=== PATIENT | male | born 1980 | race Caucasian/White ===

== ENCOUNTER 2023-10-18 20:38 | Emergency (ER) | payer MEDICAID, SELFPAY ==
[2023-10-18 20:40] VITALS: BP 99/66; PULSE 108; RESP 19; TEMP 35.6; O2SAT 94; BMI 29.3
[2023-10-18 20:44] VITALS: BP 113/64
--- NOTE | 2023-10-18 20:46 | EX.ED.SAOD ---
HPI History of Present Illness Chief Complaint: Overdose Informant: patient and EMS Narrative Narrative: 43-year-old male who apparently lost consciousness and EMS was called, police gave him a dose of intranasal Narcan, followed by EMS who gave him 12 more doses/vials of intranasal Narcan before he woke up. At this time the patient states he feels very shaky his chest is sore, and he denies doing any drugs. He does state that he recalls telling bystanders that there is Narcan in his bedroom, just in case but not for him since he does not use drugs. PFSH PFS Medical History unable to obtain Allergy/AdvReac Type Severity Reaction Status Date / Time No Known Allergies Allergy Verified 10/18/23 20:48 Social History Smoking Status: Unknown if ever smoked ROS ROS ED Constitutional Constitutional ED: Denies chills or fever(s) Eyes Eyes: Denies change in vision or diplopia Cardiovascular Cardiovascular: Reports chest pain; Denies palpitations Respiratory/Chest Respiratory/Chest: Denies cough or dyspnea Gastrointestinal Gastrointestinal: Denies abdominal pain, diarrhea, nausea or vomiting Genitourinary Genitourinary ED: Denies dysuria or hematuria Musculoskeletal Musculoskeletal: Denies back pain or neck pain Integumentary Denies abscess or rash Neurologic Neurologic: Reports as per HPI, memory loss and syncope; Denies headache(s), paresthesias or weakness Psychiatric Psychiatric: Reports anxiety; Denies suicidal thoughts EXAM Physical Exam Const Vital Signs: 10/18/23 20:40 10/18/23 21:39 10/18/23 22:00 Temperature 96.1 F L Temperature Source Temporal Pulse Rate 108 H 86 89 Respiratory Rate 19 H 23 H 25 H Blood Pressure 99/66 109/64 Blood Pressure Mean 77 79 Pulse Ox 94 91 93 Oxygen Delivery Method Room Air Room Air Room Air 10/18/23 20:44 Temperature Temperature Source Pulse Rate Respiratory Rate Blood Pressure 113/64 Blood Pressure Mean 80 Pulse Ox Oxygen Delivery Method Positive well nourished and well developed General Appearance ED: well developed and NAD HEENT Reports moist mucous membranes normocephalic and atraumatic Eyes PERRL and EOMs intact bilaterally Eyes Narrative: 3-4 mm bilaterally Neck full ROM and supple Resp normal respiratory effort and clear to auscultation bilaterally Cardio regular rate, regular rhythm and no murmurs GI non-tender and non-distended Auscultation: normoactive bowel sounds Palpation: soft Back/Spine no CVA tenderness General Back: other FROM Extremity normal to inspection Extremity Narrative: Diffuse muscle spasms but able to follow commands, no seizure activity General Extremety ED: Negative for edema, pulses abnormal or tenderness General Extremity: Negative for edema or pulses abnormal Neuro oriented x3, CN's II-XII intact bilaterally and no sensory deficits noted Neuro Narrative: Tremulousness throughout Sensorium / Orientation: awake and alert Motor Exam: strength 5/5 throughout Psych Mood & Affect: anxious Skin no rashes or lesions noted and no wounds MDM MDM MDM Narrative Medical decision making narrative: Patient complaining of chest discomfort, but appears to be in narcotic withdrawal likely due to all of the Narcan he received to reverse whatever we suspect he had ingested. Given that, labs, EKG, troponin were obtained. EKG is normal on my interpretation. Further history was obtained when a 26-year-old female arrived by EMS, police and EMS state she was at the same scene that he was found in, which is in an apartment in an elderly assisted living area that they were suspicious he might have been breaking into, however the female was seen rummaging around and he was unconscious. At 1 point the female was doing CPR on this patient and blowing in his face. This is when EMS arrived and gave him Narcan which eventually woke him up as above. The female had told EMS prior to arrival here that they were involved with using kratom and THC Gummies. Patient continues to deny using substances tonight. The CPR explains why his chest is bothering him. 1 view chest x-ray on my interpretation is negative for any pneumothorax or obvious rib fracture. Labs are unremarkable including troponin, except for nonspecific leukocytosis which I suspect was due to stress demargination, under the clinical circumstances. Initially had ordered IV fluids for him along with some Ativan to help him calm down, however nursing were having difficulty getting an IV line, and by the time they discussed this with me, the patient was talking with police and much calmer and in no need of benzodiazepines. He is ambulatory and doing well. He is not able to urinate for us. He does not feel like he needs to go. At this time I am comfortable with letting him go home is been observed for 2 hours without the need for more Narcan. Lab Data Attestation: I reviewed the patient's lab results. Labs: Laboratory Results - last 24 hr 10/18/23 21:14 WBC 17.9 H RBC 4.97 Hgb 14.3 Hct 44.7 MCV 89.9 MCH 28.8 MCHC 32.0 RDW Std Deviation 47.7 H RDW Coeff of Danielle 14.4 Plt Count 267 MPV 10.4 Immature Gran % (Auto) 0.700 Neut % (Auto) 83.0 H Lymph % (Auto) 10.2 L [place] % (Auto) 4.8 Eos % (Auto) 1.0 Baso % (Auto) 0.3 Absolute Neuts (auto) 14.9 H Absolute Lymphs (auto) 1.83 Nucleated RBC % 0 Sodium 139 Potassium 3.5 Chloride 105 Carbon Dioxide 28.0 Anion Gap 6 BUN 17 Creatinine 1.27 Estim Creat Clear Calc 86.77 Est GFR (MDRD) Af Amer 80 Est GFR (MDRD) Non-Af 66 BUN/Creatinine Ratio 13.4 Glucose 82 Calcium 9.1 Troponin I High Sens 6 Ethyl Alcohol < 3.0 Rhythm Strip Rhythm Strip: Sinus Rhythm Rate: 95 Ectopy: None EKG Initial EKG: Attestation: I personally reviewed and interpreted this EKG as follows: Interpretation: Sinus Rhythm and No Acute Injury Pattern Comments: nml ekg Discharge Plan Triage Chief Complaint: Overdose ED Provider: Tobias Kwan Dx/Rx/DC Orders Clinical Impression: Accidental overdose, Musculoskeletal chest pain Instructions: ED Overdose, Opiate Primary Care Provider: Care Physician,No Primary Referrals: [facility] [Non-Staff] - (for addiction help) Disposition Disposition: Home, Self Care
[2023-10-18 21:21] LABS: Absolute Lymphocyte Count 1.83 X10^3/uL (0.83-4.51); Absolute Neutrophil Count 14.9 X10^3/uL (2.0-7.7); Basophil# 0.06 X10^3/uL; Basophil% 0.3 % (0-1); Eosinophil# 0.18 X10^3/uL; Hematocrit 44.7 % (40-54); Hemoglobin 14.3 g/dL (13.0-16.5); Lymphocyte # 1.83 X10^3/ul (0.83-4.51); Lymphocyte % 10.2 % (19-41); Mean Corpuscular Hgb 28.8 pg (27.0-32.0); Mean Corpuscular Volume 89.9 fL (80-94); Mean Platelet Vol. 10.4 fl (6.2-12.0); Monocyte# 0.86 X10^3/uL; Monocyte% 4.8 % (0-10); NRBC Flagged by Analyzer 0 % (0-5); Neutrophil # 14.88 X10^3/uL (2.7-7.7); Platelet Count 267 K/mm3 (150-450); RBC Distribution Width CV 14.4 % (11.6-14.6); RBC Distribution Width SD 47.7 fl (35.1-43.9); Red Blood Count 4.97 M/mm3 (4.6-6.2); White Blood Count 17.9 K/mm3 (4.4-11.0)
[2023-10-18 21:31] LABS: Alcohol, Blood (Medical)-Serum < 3.0 mg/dL
[2023-10-18 21:38] LABS: Anion Gap 6 (5-15); BUN 17 mg/dL (7-18); BUN/Creat Ratio 13.4 RATIO (10-20); Calcium,Total 9.1 mg/dL (8.5-10.1); Chloride 105 mmol/L (98-107); Creatinine, Serum 1.27 mg/dL (0.70-1.30); EST Glomerular Filtration Rate 66 mL/min (>60); Est Glom Filt Rate - Afr Amer 80 mL/min (>60); Estimated Creatinine Clearance 86.77 ml/min; Glucose 82 mg/dL (74-106); Potassium 3.5 mmol/L (3.5-5.1); Sodium Level 139 mmol/L (136-145); Troponin-I HS (w/2H Reflex) 6 pg/mL (3.0-78.0)
[2023-10-18 21:39] VITALS: BP 109/64; PULSE 86; RESP 23; O2SAT 91
[2023-10-18 22:00] VITALS: PULSE 89; RESP 25; O2SAT 93
--- NOTE | 2023-10-18 22:15 | RAD_ITS ---
STUDY: X-RAY CHEST REASON FOR EXAM: Male, 43 years old. chest pain TECHNIQUE: AP port COMPARISON: None. FINDINGS: The lungs are clear and expanded. There is no demonstrated pleural abnormality. Normal size heart. Normal mediastinum and ever. Normal visualized pulmonary arteries. Normal visualized aortic arch and descending thoracic aorta. Normal visualized thoracic spine. Normal visualized ribs, clavicles, and shoulders. There is no demonstrated abnormality of the visualized soft tissue structures of the upper abdomen. RAD/Chest 1 View (Portable) IMPRESSION: Normal x-ray examination of the chest. Electronically Signed: Luis Figueroa MD at 22:36 EDT ,
[2023-10-18 22:30] VITALS: BP 113/70; PULSE 82; RESP 20; TEMP 36.8; O2SAT 93
[2023-10-18 23:17] LABS: Reflex Troponin-HS? (from REC) Y
== END 2023-10-18 22:36 | disposition home or self-care (01) ==
PROVIDERS: Emergency Provider Emergency Medicine; Visit Provider Emergency Medicine
DX: T50.991A Poisoning by other drugs, medicaments and biological substances, accidental (unintentional), initial encounter (principal); T40.711A Poisoning by cannabis, accidental (unintentional), initial encounter; R07.89 Other chest pain
CPT/HCPCS: 71045; 80048; 80320; 84484; 85025; 93005; 99283; A4216; G0480